=== PATIENT | female | born 1930 | race Caucasian/White ===

== ENCOUNTER 2016-12-31 07:32 | Day surgery (SDC) | payer MEDICARE, OTHER ==
[2016-12-26 11:14] LABS: HEMATOCRIT 39.2 % (36.0-48.0)
[2016-12-26 11:30] LABS: BUN (BLOOD UREA NITROGEN) 18 MG/DL (6-23); CALCIUM, SERUM 9.5 MG/DL (8.5-10.4); CHLORIDE, SERUM 105 MMOL/L (96-112); CO2 (CARBON DIOXIDE) 32 MMOL/L (24-34); CREATININE 1.02 MG/DL (0.55-1.02); GFR AFRICAN AMERICAN 57 ML/MIN (>=60); GFR NON AFRICAN AMERICAN 49 ML/MIN (>=60); GLUCOSE, SERUM 86 MG/DL (60-99); POTASSIUM, SERUM 4.2 MMOL/L (3.5-5.3); SODIUM, SERUM 143 MMOL/L (135-148)
--- NOTE | ~2016-12-31 | OP ---
Record Of Operation [facility] [address] [place]. [address] NAME: DEMIAN ROMERO : 28 STATUS : [facility]#: [id number] AGE: 86 ADM/REG DATE : 12/31/16 MR#: [id number] REPORT SERV DATE: 12/31/16 DICTATED BY: BANDAR BISWAS III DATE: 12/31/16 REPORT STATUS : Draft TRANSCRIBED BY: MODL DATE: 12/31/16 DATE OF PROCEDURE: 12/31/2016 PREOPERATIVE DIAGNOSIS: Microhematuria. POSTOPERATIVE DIAGNOSES: 1. Follicular cystitis. 2. Normal bilateral retrograde pyelogram. SURGEON: Bandar Biswas M.D. ANESTHESIA: General. SPECIMEN: None. DRAINS: None. INDICATION: Ms. Romero is an 86-year-old white female, undergoing a microhematuria evaluation. She has had a renal ultrasound, which was normal. Consent is obtained for cystoscopy and bilateral retrograde pyelograms. DESCRIPTION OF PROCEDURE: After consent was obtained, the patient was identified. She was taken to the OR and put to sleep. She was positioned in the low lithotomy position and prepped and draped in the usual fashion. The 22-[place] cystoscope was inserted using the obturator. Cystoscopy was then performed. There were no tumors, stones, or foreign bodies. There were wall changes in the trigone consistent with follicular cystitis. Pictures were obtained. A cone-tipped ureteral catheter was then used to obtain bilateral retrograde pyelograms. They were both normal. There were no filling defects, obstructions, or other abnormalities noted. The bladder was then drained. The scope removed. The patient was awakened and taken to recovery in stable condition. PH/MODL Bandar Biswas III, M.D. / [id number] CC: Keli Cantu III, M.D.
[~2016-12-31 07:32] MED LIST: ASAB PO; CALTRAT600 PO; CORDARONE PO; CYANO1000T PO; FOLIC PO; FOSAMAX70 MG PO; L40 PO; LIPITOR20 PO; LOP25 PO; MICRO-K10 MEQ PO; PRAVAC PO; PRILOSEC40 MG PO; TOPXL25 PO; ULTRAM50 PO; VIACTIV PO; VITAMIN D1000 UNI1 PO
== END 2016-12-31 12:26 | disposition home or self-care (01) ==
LOC: SDC 07:32
PROVIDERS: Urology
PROC: BT14ZZZ Fluoroscopy of Kidneys, Ureters and Bladder (ICD-10-PCS; principal; 2016-12-31 08:30)
DX: N30.30 Trigonitis without hematuria (principal); G45.9 Transient cerebral ischemic attack, unspecified; Z96.1 Presence of intraocular lens; Z95.1 Presence of aortocoronary bypass graft; M19.90 Unspecified osteoarthritis, unspecified site; K21.9 Gastro-esophageal reflux disease without esophagitis; Z98.41 Cataract extraction status, right eye; Z98.42 Cataract extraction status, left eye; C80.1 Malignant (primary) neoplasm, unspecified
CPT/HCPCS: 74420; 80048; 85014; 85018; 93005; J2405; J2710; J3010; Q9967